=== PATIENT | male | born 1980 | race Caucasian/White ===

== ENCOUNTER 2018-04-27 12:32 | Inpatient (IN) | payer MEDICARE, MEDICAID ==
--- NOTE | 2018-04-27 14:04 | C.PDOC ---
History Of Present Illness 37 year old male presents to the ED with mother requesting heroin detox. Patient states he has been on the detox waiting list and contacting Myesha from the Crisis department for the past 3 days. He denies suicidal/homicidal ideation at this time. Time Seen by Provider: 04/27/18 13:44 Chief Complaint (Nursing): Substance Abuse History Per: Patient History/Exam Limitations: no limitations Onset/Duration Of Symptoms: Days (3) Current Symptoms Are (Timing): Still Present Modifying Factor(s): Other (heroin) Associated Symptoms: denies: Suicidal Thoughts, Suicidal Plan Involuntary Hold By: None Recent travel outside of the [place]: No Additional History Per: Patient Past Medical History Reviewed: Historical Data, Nursing Documentation, Vital Signs Vital Signs: Last Vital Signs Temp 98.2 F 04/27/18 12:36 Pulse 83 04/27/18 12:36 Resp 18 04/27/18 12:36 BP 123/82 04/27/18 12:36 Pulse Ox 95 04/27/18 12:36 - Medical History PMH: Bipolar Disorder Surgical History: No Surg Hx Family History: States: Unknown Family Hx - Social History Hx Alcohol Use: Yes Hx Substance Use: Yes - Immunization History Hx Tetanus Toxoid Vaccination: No Hx Influenza Vaccination: No Hx Pneumococcal Vaccination: No Review Of Systems Psych: Positive for: Other (heroin detox ). Negative for: Suicidal ideation Physical Exam - Physical Exam Appears: Non-toxic, No Acute Distress Skin: Normal Color, Warm, Dry Head: Atraumatic, Normacephalic Eye(s): bilateral: Normal Inspection Oral Mucosa: Moist Neck: Supple Chest: Symmetrical, No Deformity, No Tenderness Cardiovascular: Rhythm Regular, No Murmur Respiratory: Normal Breath Sounds, No Rales, No Rhonchi, No Wheezing Extremity: Normal ROM, Capillary Refill (less than 2 seconds ) Neurological/Psych: Oriented x3, Normal Speech, Normal Cognition ED Course And Treatment - Laboratory Results Result Diagrams: 04/27/18 15:42 04/27/18 15:42 Lab Interpretation: No Acute Changes O2 Sat by Pulse Oximetry: 95 (on RA ) Pulse Ox Interpretation: Normal Interpretation Of Abnormal: Patient is medically cleared for psychiatric and detox admission. Progress Note: Bloodwork and urinalysis ordered and reviewed. Disposition - Disposition Disposition: HOSPITALIZED Disposition Time: 17:10 Condition: STABLE Instructions: Opioid Use Disorder - POA Present On Arrival: None - Clinical Impression Clinical Impression: Opioid use disorder, Depression - Scribe Statement The provider has reviewed the documentation as recorded by the Scribe (Lizzie Grande) Provider Attestation: All medical record entries made by the Scribe were at my direction and personally dictated by me. I have reviewed the chart and agree that the record accurately reflects my personal performance of the history, physical exam, medical decision making, and the department course for this patient. I have also personally directed, reviewed, and agree with the discharge instructions and disposition.
[2018-04-27 15:46] LABS: BASO # 0.1 K/uL (0.0-0.2); BASO % 0.7 % (0.0-2.0); EOS % 0.6 % (0.0-4.0); HEMOGLOBIN 14.1 g/dL (12.0-18.0); LYMPH # 1.6 K/uL (1.0-4.3); LYMPH % 19.1 % (20.0-40.0); MEAN CELL VOLUME 85.3 fL (80.0-94.0); MEAN CORPUSCULAR HEMOGLOBIN 27.8 pg (27.0-31.0); MEAN CORPUSCULAR HGB CONC 32.6 g/dL (33.0-37.0); MEAN PLATELET VOLUME 8.8 fL (7.2-11.7); MONO # 0.4 K/uL (0.0-0.8); MONO % 5.2 % (0.0-10.0); NEUT # 6.1 K/uL (1.8-7.0); NEUT % 74.4 % (50.0-75.0); NRBC % 0.1 % (0.0-2.0); RBC 5.08 Mil/uL (4.40-5.90); RED CELL DISTRIBUTION WIDTH 13.8 % (11.5-14.5); WHITE BLOOD COUNT 8.2 K/uL (4.8-10.8)
[2018-04-27 15:53] LABS: SQUAMOUS EPITHIAL < 1 /hpf (0-5); URINE BILIRUBIN NEGATIVE (NEGATIVE); URINE BLOOD NEGATIVE (NEGATIVE); URINE CLARITY Clear (Clear); URINE COLOR Yellow (YELLOW); URINE GLUCOSE (UA) NORMAL (Normal); URINE LEUKOCYTE ESTERASE NEG Leu/uL (Negative); URINE PROTEIN NEGATIVE (NEGATIVE)
[2018-04-27 15:58] LABS: ALB/GLOB RATIO 1.6 (1.0-2.1); ALBUMIN 4.3 g/dL (3.5-5.0); ALT/SGPT 20 U/L (21-72); AST/SGOT 20 U/L (17-59); BLOOD UREA NITROGEN 7 mg/dL (9-20); CALCIUM 8.8 mg/dl (8.6-10.4); GFR NON-AFRICAN AMERICAN > 60
[2018-04-27 16:18] LABS: BARBITURATES, UR NEGATIVE (NEGATIVE); BENZODIAZEPINES, UR NEGATIVE (NEGATIVE); PHENCYCLIDINE, UR NEGATIVE (NEGATIVE)
[2018-04-27 16:39] LABS: OPIATES, UR POSITIVE (NEGATIVE)
[2018-04-27] MEDS ORDERED: Aluminum Hydroxide/Magnesium Hydroxide Susp (30 mL) PO PRN (18:45)
[2018-04-27] MEDS ORDERED: Buprenorphine Hydrochloride 2 mg SL ONE ×3 (19:00→21:12)
--- NOTE | 2018-04-27 19:40 | PCM.BM ---
<Ryanne Buck - Last Filed: 04/27/18 19:38> Treatment Plan Problems - Problems identified on initial assessmt Altered Sleep Patterns Date Initiated: 04/27/18 Time Initiated: 17:55 Assessment reference: NA Status: Active Altered family process Date Initiated: 04/27/18 Time Initiated: 17:55 Treatment assets and liabiliti Patient Assests: ADL independent, negotiates basic needs Patient Liabilities: poor support system, substance abuse (Heroin) - Milieu Protocol Maintain good personal hygiene: daily Encourage regular showers, daily Remind patient to perform daily oral care, every shift Assist patient to perform ADL's Conduct patient checks and document Observation sheet: Q15 minutes Maintain personal safety: every shift Educate patient to report safety concerns to staff, every shift Monitor environment for contraband/sharps Medication safety: Monitor for expected outcome, potential side effects: every shift, Assess barriers to learning: every shift, Assess readiness for medication education: every shift <Francis Castnaeda - Last Filed: 04/28/18 18:40> - Diagnosis (1) Depression Status: Acute Interventions: 04/28/18 18:40 * Assess/adjust medications daily and /or as needed * See patient on an individual basis 7x/week to assess symptoms of depression * Monitor for side effects & effectiveness of medications * (2) Opioid use disorder Status: Acute Interventions: 04/28/18 18:40 * Assess 7x/week regarding severity of withdrawal * Educate regarding risks, benefits, side effects and alternatives of medications * Use Motivational Interviewing for abstinence * Use CBT for relapse prevention * Medication management for withdrawal symptoms * Encourage medication assisted treatment * <Christy Mc - Last Filed: 04/29/18 13:44> Family Contact Family involvement: Patient does not wish Family/SO involvement Family contact: Patient declines to allow family contact at present - Goals for Treatment Patient goals for treatment: "I want go to [facility]." Discharge/Continuing Care - Education Needs Education Needs: Patient Medication, Patient Diagnosis/Disease Process, Patient Coping Skills, Patient Placement options, Patient Community resources - Discharge Discharge Criteria: Free of Suicidal thoughts, Normal sleep pattern, Ability to care for self, No longer exhibiting s/s of withdrawal, Reduction of target symptoms Discharge to:: Home, With Family - Treatment Team Participation Discussed with Family/SO: No Was Patient/Family/SO present at Treatment Team Meeting: Yes
--- NOTE | 2018-04-28 09:49 | PCM.PSYCH ---
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 He presented to the [facility] ED on 04/27 accompanied by his mother and was admitted to the [facility] psychiatric unit for severe depression and heroin use. On examination patient is well groomed, pleasant, and open to questioning. He is currently feeling a little better and comments that he wishes to get clean and not depressed. He reports anhedonia, low mood, pessimism, but no longer suicidal as he feels hopeful he will get help. He explains that he has had previous manic episodes while under the influence of drugs. Patient comments that he has been smoking 10-15 bags of heroin daily, after relapsing 2 months ago, and that he has been doing heroin for the past 3 years. He last used heroin at 3am on 04/27 prior to his admission to [facility]. He has also been sniffing cocaine for the past 6 months. He uses marijuana occasionally. He comments that his longest period of sobriety was for 2 years. He denies use of Xanax, alcohol, or cigarettes. He has never overdosed. He has been to a detox unit twice in the past and completed a 28 day rehabilitation program. PMHx: Denies PsychHx: Diagnosed with major depressive disorder but then also with bipolar disorder. He remebers having manic sxs as a teen even. However, he was always doing drugs on and off. Psych Hospitalizations: 3 times for Bipolar disorder FMHx: Denies Medications: 4 mg Risperdal, 2 mg Cogentin, 100mg trazadone Allergies: Pumpkin seeds Current Medications: Active Medications Generic Name Dose Route Start Last Admin Trade Name Freq PRN Reason Stop Dose Admin Al Hydrox/Mg Hydrox/Simethicone 30 ml 04/27/18 18:45 Maalox 30 Ml PO TID PRN Indigestion / Heartburn Benztropine Mesylate 1 mg 04/28/18 10:00 04/28/18 09:41 Cogentin PO 1 mg DAILY JOSHUA Administration Benztropine Mesylate 1 mg 04/27/18 22:00 04/27/18 22:07 Cogentin PO 1 mg HS JOSHUA Administration Clonidine HCl 0.1 mg 04/27/18 18:45 Catapres PO Q4 PRN COWS Score More or Equal to 5 Dicyclomine HCl 10 mg 04/27/18 18:45 Bentyl PO Q6 PRN Muscle spasm Gabapentin 400 mg 04/28/18 10:00 04/28/18 09:39 Neurontin PO 400 mg TID JOSHUA Administration Ibuprofen 600 mg 04/27/18 18:45 Motrin Tab PO Q6 PRN Pain, moderate (4-7) Loperamide HCl 2 mg 04/27/18 18:45 Imodium PO Q8 PRN Diarrhea Ondansetron HCl 4 mg 04/27/18 22:00 Zofran Tab PO Q8 PRN Nausea/Vomiting Pneumococcal Polyvalent Vaccine 0.5 ml 04/30/18 10:00 Pneumovax 23 Vaccine IM 04/30/18 10:01 .ONCE ONE Risperidone 2 mg 04/28/18 10:00 04/28/18 09:39 Risperdal Tab PO 2 mg DAILY JOSHUA Administration Risperidone 2 mg 04/27/18 22:00 04/27/18 22:07 Risperdal Tab PO 2 mg HS JOSHUA Administration Trazodone HCl 50 mg 04/27/18 22:00 04/27/18 22:07 Desyrel PO 50 mg HS JOSHUA Administration Past Psychiatric History - Past Psychiatric History Previous Treatment History: Inpatient Pertinent Medical Hx (Current Medical&Sleep Prob, Allergies): Allergies Allergy/AdvReac Type Severity Reaction Status Date / Time No Known Allergies Allergy Unverified 04/27/18 12:39 Benztropine [Benztropine Mesylate] 2 mg PO BID 04/27/18 Risperidone [Risperdal] 2 mg PO BID 04/27/18 Trazodone HCl 150 mg PO HS 04/27/18 Review of Systems - Psychiatric Psychiatric: Abnormal Sleep Pattern, Anhedonia, Anxiety, Behavioral Changes, Depression, Difficulty Concentrating, Irritability, Mood Swings. absent: Homicidal Ideation, Suicidal Ideation Mental Status Examination - Personal Presentation Personal Presentation: Looks stated age - Affect Affect: Broad - Motor Activity Motor Activity: Calm - Reliability in Providing Information Reliability in Providing Information: Good - Speech Speech: Organized - Mood Mood: Neutral - Formal Thought Process Formal Thought Process: No Impairment - Obsessions/Compulsions Obsessions: No Compulsions: No - Cognitive Functions Orientation: Person, Place, Situation, Time Sensorium: Alert Attention/Concentration: Easily distracted Abstract Thinking: Hutchinson Estimate of Intelligence: Average Judgement: Intact, as evidence by: Insight regarding need for hospitalization Memory: Recent intact, as evidence by: Ability to recall events of the day, Remote intact, as evidenced by: Ability to recall historical events - Risk Risk: Withdrawal, Diminished functioning - Strength & Assets Inventory Strength & Assets Inventory: Cooperative - Limitations Limitations: Other DSM 5 DX - DSM 5 DSM 5 Diagnosis: Opioid withdrawal Opioid use disorder, severe Cocaine use disorder Bipolar 1 disorder - depressed r/o substance-induced mood d/o - Recommended/Plan of Treatment Treatment Recommendations and Plan of Treatment: Taper with Subutex for opioid withdrawal Patient started on Remeron for management of depression Gabapentin for augmentation if needed Continue risperdal and cogentin for bipolar d/o As needed medications Patient to continue home meds for Bipolar disorder All risks, benefits and alternatives of the meds discussed, and the pt agreed and understood. Attend groups and activities Supportive therapy and psychoeducation [place] for abstinence CBT for relapse prevention Encourage MAT Refer to rehab or IOP, and self-help groups Teach healthy lifestyle methods, i.e. diet, exercise, meditation Smoking cessation with [place] Nicotine patch if needed 34 min Projected ELOS: 5 days Prognosis: Good, with treatment
[2018-04-28] MEDS: Buprenorphine Hydrochloride 2 mg SL SCH (10:21)
[2018-04-29] MEDS: Buprenorphine Hydrochloride 2 mg SL SCH (09:43)
--- NOTE | 2018-04-29 14:17 | PCM.PYCHPN ---
Psychiatric Progress Note - Psychiatric Progress Note Patient seen today, length of contact: 16 min Patient Chief Complaint: "I'm a little better" Problems Identified/Issues Discussed: The pt is seen, chart reviewed, case discussed with staff. The pt is compliant with medications and reports no side-effects. Symptoms are improving but needs more time to stabilize. Pt attends groups and activities. Support given, psycho-education provided. After care discussed. Medication Change: Yes (meds change daily) Medical Record Reviewed: Yes Mental Status Examination - Cognitive Function Orientation: Person, Place, Situation, Time Memory: Intact Attention: Poor Concentration: Poor Association: WNL Fund of Knowledge: WNL - Mood Mood: Depressed, Anxious - Affect Affect: Constricted - Speech Speech: Appropriate - Formal Thought Process Formal Thought Process: No Impairment - Suicidal Ideation Suicidal Ideation: No - Homicidal Ideation Homicidal Ideation: No Goal/Treatment Plan - Goal/Treatment Plan Need for Continued Stay: Discharge may exacerbated symptoms, Severe functional impairment Progress Toward Problem(s) and Goals/Treatment Plan: Taper with Subutex for opioid withdrawal Patient started on Remeron for management of depression Gabapentin for augmentation if needed Continue risperdal and cogentin for bipolar d/o As needed medications Patient to continue home meds for Bipolar disorder All risks, benefits and alternatives of the meds discussed, and the pt agreed and understood. Attend groups and activities Supportive therapy and psychoeducation [place] for abstinence CBT for relapse prevention Encourage MAT Refer to rehab or IOP, and self-help groups Teach healthy lifestyle methods, i.e. diet, exercise, meditation Smoking cessation with [place] Nicotine patch if needed Estimated Date of D/C: 05/02/18
[2018-04-30 08:15] LABS: HDL CHOLESTEROL 38 mg/dL (30-70)
--- NOTE | 2018-04-30 08:22 | PCM.PYCHPN ---
Psychiatric Progress Note - Psychiatric Progress Note Patient seen today, length of contact: 16 min Medication Change: Yes (meds change daily) Medical Record Reviewed: Yes Mental Status Examination - Cognitive Function Orientation: Person, Place, Situation, Time Memory: Intact Attention: Poor Concentration: Poor Association: WNL Fund of Knowledge: WNL - Mood Mood: Depressed, Anxious - Affect Affect: Constricted - Speech Speech: Appropriate - Formal Thought Process Formal Thought Process: No Impairment - Suicidal Ideation Suicidal Ideation: No - Homicidal Ideation Homicidal Ideation: No Goal/Treatment Plan - Goal/Treatment Plan Need for Continued Stay: Discharge may exacerbated symptoms, Severe functional impairment Estimated Date of D/C: 05/02/18
[2018-04-30 08:26] LABS: LDL CHOLESTEROL 88 mg/dL (0-129)
[2018-04-30] MEDS ORDERED: Pneumococcal 23-Valent Vaccine IM ONE (10:00)
[2018-04-30] MEDS: Buprenorphine Hydrochloride 2 mg SL SCH (10:01)
[2018-04-30] MEDS ORDERED: Vitamins A & D Oint UD Foilpak TOP PRN (21:20)
[2018-05-01 06:45] VITALS: RESP 20
[2018-05-01] MEDS: Buprenorphine Hydrochloride 2 mg SL SCH (10:13)
[2018-05-02 06:25] VITALS: BP 104/67; PULSE 61; TEMP 97.5; O2SAT 96
--- NOTE | 2018-05-02 09:55 | PCM.PYCHDC ---
Mental Status Examination - Mental Status Examination Orientation: Person Discharge Summary - Discharge Note Consultations:: List each consultation separately and include: 1. Reason for request. 2. Findings. 3. Follow-up Summary of Hospital Course include:: 1. Description of specific treatment plan utilized for patients during their course of treatmen. 2. Summarize the time- course for resolution of acute symptoms and/or regressed behaviors. 3. Describe issues identified and worked on during hospitalization. 4. Describe medication utilized. 5. Describe medical problems identified and treated. 6. 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 On examination patient is well groomed, pleasant, and open to questioning. He is currently feeling a little better and comments that he wishes to get clean and not depressed. He reports anhedonia, low mood, pessimism, but no longer suicidal as he feels hopeful he will get help. He explains that he has had previous manic episodes while under the influence of drugs. Patient comments that he has been smoking 10-15 bags of heroin daily, af ter relapsing 2 months ago, and that he has been doing heroin for the past 3 years. He last used heroin at 3am on 04/27 prior to his admission to [facility]. He has also been sniffing cocaine for the past 6 months. He uses marijuana occasionally. He comments that his longest period of sobriety was for 2 years. He denies use of Xanax, alcohol, or cigarettes. He has never overdosed. He has been to a detox unit twice in the past and completed a 28 day rehabilitation program. PMHx: Denies PsychHx: Diagnosed with major depressive disorder but then also with bipolar disorder. He remebers having manic sxs as a teen even. However, he was always doing drugs on and off. Psych Hospitalizations: 3 times for Bipolar disorder FMHx: Denies Medications: 4 mg Risperdal, 2 mg Cogentin, 100mg trazadone Allergies: Pumpkin seeds He will go to [facility]. - Diagnosis (1) Depression Current Visit: Yes Status: Acute (2) Opioid use disorder Current Visit: Yes Status: Acute - Final Diagnosis (DSM 5) Condition upon Discharge: STABLE Disposition: HOME/ ROUTINE Follow-up Treatment Plan: Taper with Subutex for opioid withdrawal Patient started on Remeron for management of depression Gabapentin for augmentation if needed Continue risperdal and cogentin for bipolar d/o As needed medications Patient to continue home meds for Bipolar disorder All risks, benefits and alternatives of the meds discussed, and the pt agreed and understood. Attend groups and activities Supportive therapy and psychoeducation [place] for abstinence CBT for relapse prevention Encourage MAT Refer to rehab or IOP, and self-help groups Teach healthy lifestyle methods, i.e. diet, exercise, meditation Smoking cessation with LA Nicotine patch if needed Prescriptions/Medication Reconciliation: Benztropine [Cogentin] 1 mg PO BID #60 tab Gabapentin [Neurontin] 400 mg PO TID #90 cap Mirtazapine [Remeron] 15 mg PO HS #30 tab risperiDONE [RisperDAL Tab] 2 mg PO BID #60 tab traZODone [Desyrel] 50 mg PO HS #30 tab
== END 2018-05-02 11:11 | disposition home or self-care (01) | DRG 895 ==
LOC: C.ER 12:32 → C.5E 17:09
PROC: HZ52ZZZ Individual Psychotherapy for Substance Abuse Treatment, Cognitive-Behavioral (ICD-10-PCS; principal; 2018-04-27)
PROC: HZ2ZZZZ Detoxification Services for Substance Abuse Treatment (ICD-10-PCS; 2018-04-27)
PROC: HZ59ZZZ Individual Psychotherapy for Substance Abuse Treatment, Supportive (ICD-10-PCS; 2018-04-27)
PROC: HZ56ZZZ Individual Psychotherapy for Substance Abuse Treatment, Psychoeducation (ICD-10-PCS; 2018-04-27)
PROC: HZ42ZZZ Group Counseling for Substance Abuse Treatment, Cognitive-Behavioral (ICD-10-PCS; 2018-04-27)
PROC: HZ46ZZZ Group Counseling for Substance Abuse Treatment, Psychoeducation (ICD-10-PCS; 2018-04-27)
PROC: GZHZZZZ Group Psychotherapy (ICD-10-PCS; 2018-04-27)
PROC: GZ58ZZZ Individual Psychotherapy, Cognitive-Behavioral (ICD-10-PCS; 2018-04-27)
PROC: GZ56ZZZ Individual Psychotherapy, Supportive (ICD-10-PCS; 2018-04-27)
DX: F11.23 Opioid dependence with withdrawal (principal); F14.10 Cocaine abuse, uncomplicated; F12.90 Cannabis use, unspecified, uncomplicated; F31.9 Bipolar disorder, unspecified; F32.9 Major depressive disorder, single episode, unspecified

== ENCOUNTER 2018-07-19 11:50 | Inpatient (IN) | payer MEDICARE, MEDICAID ==
--- NOTE | 2018-07-19 12:50 | C.PDOC ---
History Of Present Illness 37 year old male presents to ED requesting heroin and alcohol detox. Patient states that he last used heroin this morning and had a drink yesterday. Patient also admits to marijuana abuse. Patient denies suicidal ideation and homicidal ideation. Time Seen by Provider: 07/19/18 12:42 Chief Complaint (Nursing): Substance Abuse History Per: Patient History/Exam Limitations: no limitations Onset/Duration Of Symptoms: Other (requesting detox) Current Symptoms Are (Timing): Still Present Suicide/Self Injury Attempted (Context): None Modifying Factor(s): Alcohol, Marijuana, Other (heroin) Associated Symptoms: denies: Suicidal Thoughts, Suicidal Plan Past Medical History Reviewed: Historical Data, Nursing Documentation, Vital Signs Vital Signs: Last Vital Signs Temp 99 F 07/19/18 12:02 Pulse 75 07/19/18 12:02 Resp 18 07/19/18 12:02 BP 119/74 07/19/18 12:02 Pulse Ox 94 L 07/19/18 12:02 Primary Care Provider: Stefanie Chilel - Medical History PMH: Bipolar Disorder Denies: Diabetes, Hepatitis, HIV, HTN, Seizures, Sexually Transmitted Disease Surgical History: No Surg Hx - [facility] DETOXIFICATION SERVICES FOR SUBSTANCE ABUSE TREATMENT (04/27/18) GROUP CUSTOM FEED MILL OPERATOR HELPER FOR SUBSTANCE ABUSE TREATMENT, PSYCHOEDUCATION (04/27/18) GROUP CUSTOM FEED MILL OPERATOR HELPER FOR SUBSTANCE ABUSE, COGNITIVE BEHAVIORAL (04/27/18) GROUP PSYCHOTHERAPY (04/27/18) INDIV PSYCHOTHERAPY FOR SUBSTANCE ABUSE TREATMENT, SUPPORT (04/27/18) INDIV PSYCHOTHERAPY FOR SUBSTANCE ABUSE, COGNITIV BEHAVIORAL (04/27/18) INDIV PSYCHOTHERAPY FOR SUBSTANCE ABUSE, PSYCHOEDUCATION (04/27/18) INDIVIDUAL PSYCHOTHERAPY, COGNITIVE-BEHAVIORAL (04/27/18) INDIVIDUAL PSYCHOTHERAPY, SUPPORTIVE (04/27/18) Family History: States: Unknown Family Hx - Social History Hx Alcohol Use: Yes Hx Substance Use: Yes (heroin, marijuana) - Immunization History Hx Tetanus Toxoid Vaccination: No Hx Influenza Vaccination: No Hx Pneumococcal Vaccination: No Review Of Systems Except As Marked, All Systems Reviewed And Found Negative. Psych: Positive for: Withdrawal (mild) Physical Exam - Physical Exam Appears: Non-toxic, No Acute Distress Skin: Normal Color, Warm, Dry Head: Atraumatic, Normacephalic Eye(s): bilateral: Normal Inspection, PERRL, EOMI Oral Mucosa: Moist Neck: Normal ROM, Supple Chest: Symmetrical, No Deformity Respiratory: No Accessory Muscle Use, No Rales, No Rhonchi, No Wheezing Gastrointestinal/Abdominal: Soft, No Tenderness, No Distention, No Guarding, No Rebound Extremity: Capillary Refill (<2 seconds) Extremity: Bilateral: Atraumatic, Normal Color And Temperature, Normal ROM Pulses: Left Radial: Normal, Right Radial: Normal Neurological/Psych: Oriented x3, Other (calm, cooperative, tremulous ) ED Course And Treatment - Laboratory Results Result Diagrams: 07/19/18 13:31 07/19/18 13:31 O2 Sat by Pulse Oximetry: 94 (in RA) Pulse Ox Interpretation: Normal Progress Note: Labs ordered with drug screen, CBC, and UA for patient. Patient given clonidine PO, librium PO, Motrin PO, and Zofran PO. Pending Crisis evaluation. Reevaluation Time: 14:12 Reassessment Condition: Improved (MED CLEAR FOR DETOX. CRISIS NOTIFIED) - Physician Consult Information Time Consulting Physician Contacted: 17:06 Outcome Of Conversation: PER CRISIS, ADMIT OBS Disposition Counseled Patient/Family Regarding: Studies Performed, Diagnosis - Disposition Disposition: HOSPITALIZED Disposition Time: 17:03 Condition: STABLE Forms: [facility] (Jamaican) - Clinical Impression Clinical Impression: Opioid use disorder - Scribe Statement The provider has reviewed the documentation as recorded by the Scribe (Jennifer Disla) All medical record entries made by the Scribe were at my direction and personally dictated by me. I have reviewed the chart and agree that the record accurately reflects my personal performance of the history, physical exam, medical decision making, and the department course for this patient. I have also personally directed, reviewed, and agree with the discharge instructions and disposition.
[2018-07-19 13:37] LABS: BASO % 0.8 % (0.0-2.0); EOS # 0.1 K/uL (0.0-0.7); EOS % 1.7 % (0.0-4.0); HEMOGLOBIN 13.9 g/dL (12.0-18.0); LYMPH # 1.2 K/uL (1.0-4.3); LYMPH % 22.4 % (20.0-40.0); MEAN CELL VOLUME 85.7 fL (80.0-94.0); MEAN CORPUSCULAR HEMOGLOBIN 28.8 pg (27.0-31.0); MEAN CORPUSCULAR HGB CONC 33.7 g/dL (33.0-37.0); MEAN PLATELET VOLUME 8.7 fL (7.2-11.7); MONO # 0.5 K/uL (0.0-0.8); MONO % 9.8 % (0.0-10.0); NEUT # 3.4 K/uL (1.8-7.0); NEUT % 65.3 % (50.0-75.0); RBC 4.82 Mil/uL (4.40-5.90); RED CELL DISTRIBUTION WIDTH 14.7 % (11.5-14.5); WHITE BLOOD COUNT 5.3 K/uL (4.8-10.8)
[2018-07-19 13:39] LABS: URINE BILIRUBIN NEGATIVE (NEGATIVE); URINE BLOOD NEGATIVE (NEGATIVE); URINE CLARITY Clear (Clear); URINE COLOR Yellow (YELLOW); URINE GLUCOSE (UA) NORMAL (Normal); URINE LEUKOCYTE ESTERASE NEG Leu/uL (Negative); URINE PROTEIN NEGATIVE (NEGATIVE)
[2018-07-19 13:51] LABS: ALB/GLOB RATIO 1.6 (1.0-2.1); ALBUMIN 4.2 g/dL (3.5-5.0); ALT/SGPT 23 U/L (21-72); AST/SGOT 28 U/L (17-59); BLOOD UREA NITROGEN 6 mg/dL (9-20); CALCIUM 9.2 mg/dl (8.6-10.4); GFR NON-AFRICAN AMERICAN > 60
[2018-07-19 14:04] LABS: BARBITURATES, UR NEGATIVE (NEGATIVE); BENZODIAZEPINES, UR NEGATIVE (NEGATIVE); PHENCYCLIDINE, UR NEGATIVE (NEGATIVE)
[2018-07-19 14:05] LABS: OPIATES, UR POSITIVE (NEGATIVE)
--- NOTE | 2018-07-19 17:56 | PCM.BM ---
<Vinnie Randolph - Last Filed: 07/19/18 17:53> Treatment Plan Problems - Problems identified on initial assessmt denial Date Initiated: 07/19/18 Time Initiated: 17:54 Assessment reference: NA Status: Active defensive coping Date Initiated: 07/19/18 Time Initiated: 17:54 Assessment reference: NA Status: Active low self esteem chronic Date Initiated: 07/19/18 Time Initiated: 17:55 Assessment reference: NA Status: Active Treatment assets and liabiliti Patient Assests: ADL independent, negotiates basic needs Patient Liabilities: substance abuse - Milieu Protocol Maintain good personal hygiene: daily Encourage regular showers, daily Remind patient to perform daily oral care, daily Assist patient to perform ADL's Conduct patient checks and document Observation sheet: Q15 minutes Maintain personal safety: every shift Educate patient to report safety concerns to staff, every shift Monitor environment for contraband/sharps Medication safety: Monitor for expected outcome, potential side effects: every shift, Assess barriers to learning: every shift, Assess readiness for medication education: every shift <Myesha Giraldo - Last Filed: 07/20/18 13:10> Family Contact Family involvement: Famliy/SO not involved - Goals for Treatment Patient goals for treatment: Complete detox and transition to an IOP. Discharge/Continuing Care - Education Needs Education Needs: Patient Medication, Patient Diagnosis/Disease Process, Patient Coping Skills, Patient Anger Management skills, Patient Placement options, Patient Community resources - Discharge Discharge Criteria: No longer exhibiting s/s of withdrawal, Reduction of target symptoms Discharge to:: Home - Treatment Team Participation Patient/Family/SO Statement: 07/20/18 13:11 "I wanna go to [facility] Discussed with Family/SO: No Was Patient/Family/SO present at Treatment Team Meeting: Yes <Francis Castaneda - Last Filed: 07/21/18 05:05> - Diagnosis (1) Opioid use disorder Status: Acute Interventions: 07/21/18 05:05 * Assess 7x/week regarding severity of withdrawal * Educate regarding risks, benefits, side effects and alternatives of medications * Use Motivational Interviewing for abstinence * Use CBT for relapse prevention * Medication management for withdrawal symptoms * Encourage medication assisted treatment *
[2018-07-20] MEDS ORDERED: Buprenorphine Hydrochloride 2 mg SL ONE ×3 (05:25→14:00)
[2018-07-20] MEDS: guaiFENesin 200 mg/10 ml Syrup UD PO PRN (05:41)
[2018-07-20] MEDS: Multiple Vitamins Tab PO SCH (09:38)
--- NOTE | 2018-07-20 10:05 | PCM.PSYCH ---
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 He currently reports nausea, 2x vomiting of white liquid this morning, body aches, F/C, headache, and cough (since yesterday). COWS>12. He complains of lack of sleep, feelings of guilt/hopelessness, poor energy, difficulty concentrating, decreased appetite, irritability, and manic symptoms. He reports anhedonia, low mood, pessimism, but no longer suicidal as he feels hopeful he will get help. He explains that he has had previous manic episodes while under the influence of drugs. Patient comments that he has been smoking 10-15 bags of heroin daily, after relapsing 2 months ago, and that he has been doing heroin for the past 3 years. He last used heroin at 3am on 04/27 prior to his admission to [facility]. He has also been sniffing cocaine for the past 6 months. He uses marijuana occasionally. He comments that his longest period of sobriety was for 2 years. He denies use of Xanax, alcohol, or cigarettes. He has never overdosed. He has been to a detox unit twice in the past and completed a 28 day rehabilitation program. PMHx: Denies PsychHx: Diagnosed with major depressive disorder but then also with bipolar disorder. He remembers having manic sxs as a teen even. However, he was always doing drugs on and off. Psych Hospitalizations: 3 times for Bipolar disorder FMHx: Denies Medications: 4 mg Risperdal, 2 mg Cogentin, 100mg trazadone Allergies: Pumpkin seeds Current Medications: Active Medications Generic Name Dose Route Start Last Admin Trade Name Freq PRN Reason Stop Dose Admin Benztropine Mesylate 2 mg 07/20/18 10:00 07/20/18 09:44 Cogentin PO 2 mg BID JOSHUA Administration Chlordiazepoxide 25 mg 07/20/18 06:00 07/20/18 05:41 Librium PO 07/25/18 05:59 25 mg Q6H JOSHUA Administration Taper Chlordiazepoxide 25 mg 07/20/18 05:21 Librium PO Q4H PRN Alcohol Withdrawal Clonidine HCl 0.1 mg 07/20/18 05:21 Catapres PO Q4H PRN Symptoms of alcohol withdrawl Folic Acid 1 mg 07/20/18 10:00 07/20/18 09:40 Folic Acid PO 1 mg DAILY JOSHUA Administration Guaifenesin 200 mg 07/20/18 04:40 07/20/18 05:41 Robitussin PO 200 mg Q4H PRN Administration Cough and congestion Multivitamins 1 tab 07/20/18 10:00 07/20/18 09:38 Hexavitamin PO 1 tab DAILY JOSHUA Administration Risperidone 2 mg 07/20/18 10:00 07/20/18 09:39 Risperdal Tab PO 2 mg BID JOSHUA Administration Thiamine HCl 100 mg 07/20/18 10:00 07/20/18 09:41 Vitamin B1 Tab PO 100 mg DAILY JOSHUA Administration Trazodone HCl 150 mg 07/19/18 21:48 Desyrel PO HS PRN Sleep Past Psychiatric History - Past Psychiatric History Previous Treatment History: Inpatient Pertinent Medical Hx (Current Medical&Sleep Prob, Allergies): Allergies Allergy/AdvReac Type Severity Reaction Status Date / Time No Known Allergies Allergy Verified 07/19/18 12:01 Benztropine [Benztropine Mesylate] 2 mg PO BID 04/27/18 Risperidone [Risperdal] 2 mg PO BID 04/27/18 Trazodone HCl 150 mg PO HS 04/27/18 Review of Systems - Psychiatric Psychiatric: Abnormal Sleep Pattern, Anhedonia, Anxiety, Change in Appetite, Depression, Difficulty Concentrating, Irritability. absent: Hallucinations, Homicidal Ideation, Suicidal Ideation Mental Status Examination - Personal Presentation Personal Presentation: Looks stated age - Affect Affect: Constricted - Motor Activity Motor Activity: Calm - Reliability in Providing Information Reliability in Providing Information: Good - Speech Speech: Organized - Mood Mood: Depressed, Anxious - Formal Thought Process Formal Thought Process: No Impairment - Cognitive Functions Orientation: Person, Place, Situation, Time Sensorium: Alert Attention/Concentration: Attentive Estimate of Intelligence: Average Judgement: Intact, as evidence by: Insight regarding need for hospitalization Memory: Recent intact, as evidence by: Ability to recall events of the day, Remote impaired as evidenced by: Inability to recall sig life events - Risk Risk: Withdrawal, Diminished functioning - Strength & Assets Inventory Strength & Assets Inventory: Cooperative - Limitations Limitations: Other DSM 5 DX - DSM 5 DSM 5 Diagnosis: Opioid withdrawal Opioid use disorder, severe Cocaine use disorder Bipolar 1 disorder - depressed r/o substance-induced mood d/o - Recommended/Plan of Treatment Treatment Recommendations and Plan of Treatment: Taper with Subutex for opioid withdrawal Patient started on Remeron for management of depression Gabapentin for augmentation if needed Continue risperdal and cogentin for bipolar d/o As needed medications Patient to continue home meds for Bipolar disorder All risks, benefits and alternatives of the meds discussed, and the pt agreed and understood. Attend groups and activities Supportive therapy and psychoeducation [place] for abstinence CBT for relapse prevention Encourage MAT Refer to rehab or IOP, and self-help groups Teach healthy lifestyle methods, i.e. diet, exercise, meditation Smoking cessation with [place] Nicotine patch if needed 34 min Projected ELOS: 4-5 days - Smoking Cessation Smoking Cessation Initiated: Yes
[2018-07-21] MEDS: Multiple Vitamins Tab PO SCH (09:22)
[2018-07-21] MEDS: Buprenorphine Hydrochloride 2 mg SL SCH (09:24)
[2018-07-21] MEDS ORDERED: Buprenorphine Hydrochloride 2 mg SL ONE (14:00)
--- NOTE | 2018-07-21 14:15 | PCM.PYCHPN ---
Psychiatric Progress Note - Psychiatric Progress Note Patient seen today, length of contact: 16 min Patient Chief Complaint: "I'm sick still" Problems Identified/Issues Discussed: The pt is seen, chart reviewed, case discussed with staff. The pt is compliant with medications and reports no side-effects. Symptoms are improving but needs more time to stabilize. Will get an extra dose bc has breakthru sx Pt attends groups and activities. Support given, psycho-education provided. After care discussed. Medication Change: Yes (detox changes) Medical Record Reviewed: Yes Mental Status Examination - Cognitive Function Orientation: Person, Place, Situation, Time Memory: Intact Attention: WNL Concentration: Poor Association: WNL Fund of Knowledge: WNL - Mood Mood: Depressed, Anxious - Affect Affect: Constricted - Speech Speech: Appropriate - Formal Thought Process Formal Thought Process: No Impairment - Suicidal Ideation Suicidal Ideation: No - Homicidal Ideation Homicidal Ideation: No Goal/Treatment Plan - Goal/Treatment Plan Need for Continued Stay: Discharge may exacerbated symptoms, Severe functional impairment Progress Toward Problem(s) and Goals/Treatment Plan: Taper with Subutex for opioid withdrawal Patient started on Remeron for management of depression Gabapentin for augmentation if needed Continue risperdal and cogentin for bipolar d/o As needed medications Patient to continue home meds for Bipolar disorder All risks, benefits and alternatives of the meds discussed, and the pt agreed and understood. Attend groups and activities Supportive therapy and psychoeducation [place] for abstinence CBT for relapse prevention Encourage MAT Refer to rehab or IOP, and self-help groups Teach healthy lifestyle methods, i.e. diet, exercise, meditation Smoking cessation with [place] Nicotine patch if needed
[2018-07-21] MEDS: guaiFENesin 200 mg/10 ml Syrup UD PO PRN ×2 (16:24→20:31)
[2018-07-22] MEDS: Multiple Vitamins Tab PO SCH (09:33)
[2018-07-22] MEDS: Buprenorphine Hydrochloride 2 mg SL SCH (09:33)
[2018-07-22] MEDS: guaiFENesin 200 mg/10 ml Syrup UD PO PRN ×3 (10:18→23:44)
--- NOTE | 2018-07-22 13:10 | PCM.PYCHPN ---
Psychiatric Progress Note - Psychiatric Progress Note Patient seen today, length of contact: 17 min Patient Chief Complaint: "I'm a little better" Problems Identified/Issues Discussed: The pt is seen, chart reviewed, case discussed with staff. Support and psychoeducation given, CBT and [place] used briefly Pt is improving slowly and needs more time, still has ongoing symptoms. No SEs from medications, risks discussed. After care discussed Medication Change: Yes (detox changes) Medical Record Reviewed: Yes Mental Status Examination - Cognitive Function Orientation: Person, Place, Situation, Time Memory: Intact Attention: WNL Concentration: Poor Association: WNL Fund of Knowledge: WNL - Mood Mood: Depressed, Anxious - Affect Affect: Constricted - Speech Speech: Appropriate - Formal Thought Process Formal Thought Process: No Impairment - Suicidal Ideation Suicidal Ideation: No - Homicidal Ideation Homicidal Ideation: No Goal/Treatment Plan - Goal/Treatment Plan Need for Continued Stay: Discharge may exacerbated symptoms, Severe functional impairment Progress Toward Problem(s) and Goals/Treatment Plan: Taper with Subutex for opioid withdrawal Patient started on Remeron for management of depression Gabapentin for augmentation if needed Continue risperdal and cogentin for bipolar d/o As needed medications Patient to continue home meds for Bipolar disorder All risks, benefits and alternatives of the meds discussed, and the pt agreed and understood. Attend groups and activities Supportive therapy and psychoeducation [place] for abstinence CBT for relapse prevention Encourage MAT Refer to rehab or IOP, and self-help groups Teach healthy lifestyle methods, i.e. diet, exercise, meditation Smoking cessation with [place] Nicotine patch if needed Estimated Date of D/C: 07/23/18
[2018-07-23] MEDS: Multiple Vitamins Tab PO SCH (09:31)
[2018-07-23] MEDS: Buprenorphine Hydrochloride 2 mg SL SCH (09:36)
[2018-07-23] MEDS: guaiFENesin 200 mg/10 ml Syrup UD PO PRN ×2 (11:06→17:23)
--- NOTE | 2018-07-23 12:15 | PCM.PYCHPN ---
Psychiatric Progress Note - Psychiatric Progress Note Patient seen today, length of contact: 17 min Patient Chief Complaint: "I'm anxious" Problems Identified/Issues Discussed: The pt is seen again, chart reviewed, and case is discussed with the team. The pt denies any side-effects from meds. Attends activities and groups, brief individual therapy provided Not ready for discharge due to ongoing symptoms and high relapse risk. After care discussed again. Medication Change: Yes (detox changes) Medical Record Reviewed: Yes Mental Status Examination - Cognitive Function Orientation: Person, Place, Situation, Time Memory: Intact Attention: WNL Concentration: Poor Association: WNL Fund of Knowledge: WNL - Mood Mood: Depressed, Anxious - Affect Affect: Constricted - Speech Speech: Appropriate - Formal Thought Process Formal Thought Process: No Impairment - Suicidal Ideation Suicidal Ideation: No - Homicidal Ideation Homicidal Ideation: No Goal/Treatment Plan - Goal/Treatment Plan Need for Continued Stay: Discharge may exacerbated symptoms, Severe functional impairment Progress Toward Problem(s) and Goals/Treatment Plan: Taper with Subutex for opioid withdrawal Patient started on Remeron for management of depression Gabapentin for augmentation if needed Continue risperdal and cogentin for bipolar d/o As needed medications Patient to continue home meds for Bipolar disorder All risks, benefits and alternatives of the meds discussed, and the pt agreed and understood. Attend groups and activities Supportive therapy and psychoeducation [place] for abstinence CBT for relapse prevention Encourage MAT Refer to rehab or IOP, and self-help groups Teach healthy lifestyle methods, i.e. diet, exercise, meditation Smoking cessation with [place] Nicotine patch if needed Estimated Date of D/C: 07/23/18
[2018-07-23] MEDS ORDERED: Aluminum Hydroxide/Magnesium Hydroxide Susp (30 mL) PO PRN (19:52)
[2018-07-24 07:00] VITALS: O2SAT 99
--- NOTE | 2018-07-24 09:32 | PCM.PYCHDC ---
Mental Status Examination - Mental Status Examination Orientation: Person Discharge Summary - Discharge Note Consultations:: List each consultation separately and include: 1. Reason for request. 2. Findings. 3. Follow-up Summary of Hospital Course include:: 1. Description of specific treatment plan utilized for patients during their course of treatmen. 2. Summarize the time- course for resolution of acute symptoms and/or regressed behaviors. 3. Describe issues identified and worked on during hospitalization. 4. Describe medication utilized. 5. Describe medical problems identified and treated. 6. 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 COWS>12. He complains of lack of sleep, feelings of guilt/hopelessness, poor energy, difficulty concentrating, decreased appetite, irritability, and manic symptoms. He reports anhedonia, low mood, pessimism, but no longer suicidal as he feels hopeful he will get help. He explains that he has had previous manic episodes while under the influence of drugs. Patient comments that he has been smoking 10-15 bags of heroin daily, after relapsing 2 months ago, and that he has been doing heroin for the past 3 years. He last used heroin at 3am on 04/27 prior to his admission to [facility]. He has also been sniffing cocaine for the past 6 months. He uses marijuana occasionally. He comments that his longest period of sobriety was for 2 years. He denies use of Xanax, alcohol, or cigarettes. He has never overdosed. He has been to a detox unit twice in the past and completed a 28 day rehabilitation program. PMHx: Denies PsychHx: Diagnosed with major depressive disorder but then also with bipolar disorder. He remembers having manic sxs as a teen even. However, he was always doing drugs on and off. Psych Hospitalizations: 3 times for Bipolar disorder FMHx: Denies Medications: 4 mg Risperdal, 2 mg Cogentin, 100mg trazadone Allergies: Pumpkin seeds He will go to [facility] - Diagnosis (1) Opioid use disorder Current Visit: Yes Status: Acute - Final Diagnosis (DSM 5) Condition upon Discharge: STABLE Disposition: HOME/ ROUTINE Follow-up Treatment Plan: Taper with Subutex for opioid withdrawal Patient started on Remeron for management of depression Gabapentin for augmentation if needed Continue risperdal and cogentin for bipolar d/o As needed medications Patient to continue home meds for Bipolar disorder All risks, benefits and alternatives of the meds discussed, and the pt agreed and understood. Attend groups and activities Supportive therapy and psychoeducation [place] for abstinence CBT for relapse prevention Encourage MAT Refer to rehab or IOP, and self-help groups Teach healthy lifestyle methods, i.e. diet, exercise, meditation Smoking cessation with [place] Nicotine patch if needed Prescriptions/Medication Reconciliation: Benztropine [Cogentin] 1 mg PO BID #60 tab risperiDONE [RisperDAL Tab] 2 mg PO BID #60 tab traZODone [Desyrel] 150 mg PO HS PRN #90 tab PRN Reason: Sleep
[2018-07-24] MEDS: Buprenorphine Hydrochloride 2 mg SL SCH (09:36)
[2018-07-24] MEDS: Multiple Vitamins Tab PO SCH (09:36)
[2018-07-24 10:18] VITALS: BP 116/70; PULSE 65; RESP 18; TEMP 98.2
== END 2018-07-24 10:00 | disposition home or self-care (01) | DRG 885 ==
LOC: C.ER 11:50 → C.7D 17:06 → OBSVTOIN 07-20 05:19
DX: F31.9 Bipolar disorder, unspecified (principal); F11.23 Opioid dependence with withdrawal; F14.10 Cocaine abuse, uncomplicated; Z87.891 Personal history of nicotine dependence; F12.10 Cannabis abuse, uncomplicated